=== PATIENT | male | born 1970 | race Caucasian/White ===

== ENCOUNTER 2016-11-25 07:49 | Inpatient (IN) | payer MEDICAID ==
[~2016-11-25] VITALS: Ht 172.7 cm; Wt 95.8 kg
[2016-11-25 09:00] LABS: UA SPECIFIC GRAVITY 1.025 (1.005-1.035); microscopic required? YES; urine erythrocyte 1+ (NEGATIVE)
[2016-11-25 09:07] LABS: AMPHETAMINE QUAL UR NONE DETECTED (NEG <=1000)
[2016-11-25 09:37] LABS: PLATELET COUNT 61 x10^3mcL (130-400); RED CELL DISTRIBUTION WIDTH 16.1 % (11.5-14.5)
[2016-11-25 09:54] LABS: BAND NEUTROPHIL 4 % (0-10); MONOCYTE 3 % (0-7); SEGMENTED NEUTROPHILS 22 % (37-75); rbc morphology (normal/abnorm) ABNORMAL (NORMAL)
[2016-11-25 09:55] LABS: PLATELET MORPHOLOGY PLATELETS DECREASED
[2016-11-25 09:59] LABS: ALBUMIN 3.9 g/dL (3.4-5.0); ALKALINE PHOSPHATASE 134 U/L (46-116); ALT/SGPT 108 U/L (16-63); AMYLASE 71 U/L (25-115); AST/SGOT 49 U/L (15-37); BILIRUBIN TOTAL 0.4 mg/dL (0.20-1.00); CALCIUM 8.6 mg/dL (8.5-10.1); CARBON DIOXIDE 29.4 mmol/L (21-32); CHLORIDE SERUM 97 mmol/L (98-107); CHOLESTEROL 147 mg/dL (<200); CREATININE SERUM 0.7 mg/dL (0.7-1.3); GFR1 > 60 mL/min; GLUCOSE SERUM 254 mg/dL (74-106); LIPASE 75 IU/L (73-393); POTASSIUM SERUM 3.6 mmol/L (3.5-5.1); SODIUM SERUM 134 mmol/L (136-145); TOTAL PROTEIN, SERUM 7.6 g/dL (6.4-8.2)
[2016-11-25 10:01] LABS: HDL CHOLESTEROL 31 mg/dL (40-60)
[2016-11-25 11:27] LABS: T3 TOTAL 1.2 ng/mL
[2016-11-25 11:36] LABS: FREE T4 1.04 ng/dL (0.76-1.46); FREE THYROXINE INDEX 3.2 ug/dL (1.4-4.5); T4(THYROXINE) 9.3 ug/dL (4.7-13.3)
[2016-11-25 11:47] LABS: MAGNESIUM 1.9 mg/dL (1.8-2.4); PHOSPHOROUS 3.8 mg/dL (2.5-4.9)
[2016-11-25 12:53] VITALS: BP 109/67
[2016-11-25 14:23] VITALS: BP 103/58
[2016-11-25 19:49] VITALS: Ht 172.7 cm; Wt 95.8 kg
[2016-11-25 21:55] VITALS: BP 124/83
[2016-11-26 06:35] VITALS: BP 125/96
[2016-11-26 08:53] LABS: CALCIUM 9.3 mg/dL (8.5-10.1); CARBON DIOXIDE 24.2 mmol/L (21-32); CHLORIDE SERUM 97 mmol/L (98-107); CREATININE SERUM 0.8 mg/dL (0.7-1.3); GFR1 > 60 mL/min; GLUCOSE SERUM 215 mg/dL (74-106); PHOSPHOROUS 4.5 mg/dL (2.5-4.9); POTASSIUM SERUM 3.8 mmol/L (3.5-5.1); SODIUM SERUM 135 mmol/L (136-145)
[2016-11-26 09:10] LABS: PLATELET COUNT 36 x10^3mcL (130-400)
[2016-11-26 10:28] VITALS: BP 136/96
[2016-11-26 13:26] VITALS: BP 151/101
[2016-11-26 14:19] LABS: ATYPICAL LYMPH 66 %; BAND NEUTROPHIL 8 % (0-10); BASOPHIL 0 % (0-2); MONOCYTE 5 % (0-7); SEGMENTED NEUTROPHILS 7 % (37-75)
[2016-11-26 14:28] LABS: PLATELET MORPHOLOGY PLT CLUMPS SEEN; rbc morphology (normal/abnorm) ABNORMAL (NORMAL)
[2016-11-26 17:45] VITALS: BP 137/96
[2016-11-26 21:51] VITALS: BP 140/96
[2016-11-27 05:35] VITALS: BP 132/91
[2016-11-27 06:18] LABS: CALCIUM 9.2 mg/dL (8.5-10.1); CARBON DIOXIDE 23.9 mmol/L (21-32); CHLORIDE SERUM 95 mmol/L (98-107); CREATININE SERUM 0.7 mg/dL (0.7-1.3); GFR1 > 60 mL/min; GLUCOSE SERUM 196 mg/dL (74-106); MAGNESIUM 1.8 mg/dL (1.8-2.4); PHOSPHOROUS 3.5 mg/dL (2.5-4.9); POTASSIUM SERUM 3.9 mmol/L (3.5-5.1); SODIUM SERUM 127 mmol/L (136-145)
[2016-11-27 08:04] LABS: RED CELL DISTRIBUTION WIDTH 16.2 % (11.5-14.5)
[2016-11-27 08:08] LABS: PLATELET COUNT 15 x10^3mcL (130-400)
[2016-11-27 09:06] VITALS: BP 140/92
[2016-11-27 13:07] VITALS: BP 109/80
[2016-11-27 13:08] LABS: BAND NEUTROPHIL 12 % (0-10); MONOCYTE 4 % (0-7); SEGMENTED NEUTROPHILS 14 % (37-75)
[2016-11-27 13:09] LABS: rbc morphology (normal/abnorm) ABNORMAL (NORMAL)
[2016-11-27 13:10] LABS: PLATELET MORPHOLOGY PLATELETS DECREASED
[2016-11-27 16:53] VITALS: BP 134/86
[2016-11-27 21:54] VITALS: BP 128/87
[2016-11-27 22:00] LABS: CHLORIDE SERUM 100 mmol/L (98-107); CREATININE SERUM 0.7 mg/dL (0.7-1.3); GFR1 > 60 mL/min; GLUCOSE SERUM 221 mg/dL (74-106); POTASSIUM SERUM 4.1 mmol/L (3.5-5.1); SODIUM SERUM 132 mmol/L (136-145)
[2016-11-28 05:50] VITALS: BP 124/72
[2016-11-28 07:23] LABS: CALCIUM 8.6 mg/dL (8.5-10.1); CARBON DIOXIDE 27.6 mmol/L (21-32); CHLORIDE SERUM 101 mmol/L (98-107); CREATININE SERUM 0.6 mg/dL (0.7-1.3); GFR1 > 60 mL/min; GLUCOSE SERUM 146 mg/dL (74-106); PHOSPHOROUS 3.2 mg/dL (2.5-4.9); POTASSIUM SERUM 3.6 mmol/L (3.5-5.1); SODIUM SERUM 136 mmol/L (136-145)
[2016-11-28 08:24] LABS: RED CELL DISTRIBUTION WIDTH 16.7 % (11.5-14.5)
[2016-11-28 08:26] LABS: PLATELET COUNT 14 x10^3mcL (130-400)
[2016-11-28 10:00] VITALS: BP 112/79
[2016-11-28 10:32] LABS: BASOPHIL 0 % (0-2); MONOCYTE 5 % (0-7)
[2016-11-28 10:33] LABS: BAND NEUTROPHIL 11 % (0-10); SEGMENTED NEUTROPHILS 20 % (37-75)
[2016-11-28 10:34] LABS: PLATELET MORPHOLOGY PLATELETS DECREASED; rbc morphology (normal/abnorm) ABNORMAL (NORMAL)
[2016-11-28 14:37] VITALS: BP 128/67
[2016-11-28] MEDS ORDERED: METFORMIN HCL1000 MG PO (16:31)
[2016-11-28] MEDS ORDERED: LANTI SQ (16:34)
[2016-11-28 17:26] VITALS: BP 128/67
== END 2016-11-28 18:34 | disposition home or self-care (01) | DRG 203 ==
LOC: ED 07:49 → DU 10:31
PROVIDERS: Emergency Medicine; ADMIT Family Medicine
DX: M94.0 Chondrocostal junction syndrome [Tietze] (principal); N17.0 Acute kidney failure with tubular necrosis; D61.818 Other pancytopenia; D68.69 Other thrombophilia; E87.2 Acidosis; E11.65 Type 2 diabetes mellitus with hyperglycemia; E87.1 Hypo-osmolality and hyponatremia; K56.7 Ileus, unspecified; M54.16 Radiculopathy, lumbar region; E87.8 Other disorders of electrolyte and fluid balance, not elsewhere classified; R31.9 Hematuria, unspecified; D64.9 Anemia, unspecified; D69.6 Thrombocytopenia, unspecified; R74.0 Nonspecific elevation of levels of transaminase and lactic acid dehydrogenase [LDH]; Z68.32 Body mass index [BMI] 32.0-32.9, adult; Z87.891 Personal history of nicotine dependence
CPT/HCPCS: 76770; 82962; 83880; 84439; 85060; 86308; 94150; 97110-GP; 97116-GP; 97530-GP; J1170; J1815; J1885; J2270; J7030; J8597; Q0092; Q9967

== ENCOUNTER 2016-12-04 20:08 | Emergency (ER) | payer MEDICAID ==
[~2016-12-04 20:08] MED LIST: LANTI SQ; METFORMIN HCL1000 MG PO
[2016-12-04 21:53] VITALS: BP 134/82
== END 2016-12-04 21:53 | disposition home or self-care (01) ==
LOC: ED 20:08
DX: E11.65 Type 2 diabetes mellitus with hyperglycemia (principal); Z79.4 Long term (current) use of insulin
CPT/HCPCS: 82962